=== PATIENT | female | born 1980 ===

== ENCOUNTER 2016-09-03 15:24 | Observation (INO) ==
--- NOTE | 2016-09-03 17:45 | Emergency Department Note ---
Disposition Clinical Impression: Ectopic Qualifiers: Location of ectopic : tubal Intrauterine status: without intrauterine Qualified Code(s): O00.10 - Tubal without intrauterine Disposition: Admitted As Inpatient Condition: Serious Time of Disposition: 20:07 Abdominal Pain HPI - General Chief Complaint: ED Abdominal Pain Stated Complaint: ABD pain Time Seen by Provider: 09/03/16 17:28 Source: patient Mode of arrival: ambulatory Limitations: language barrier (Limited Salvadorean ability.) Nursing Notes Reviewed: Yes Vital Signs Reviewed: Yes - History of Present Illness HPI Narrative: 36-year-old female with 1 day of suprapubic pain and nausea without vomiting. This is associated with some difficulty with urination. She denies any fever, vomiting, back pain, abnormal vaginal discharge, but does note that she had missed a period prior to starting her period 3 days ago. She admits to appendectomy about 10 years ago. She denies any other surgeries. She denies any rashes or edema. She denies any painful intercourse or concern for STD. Pain Scale: 10 - Related Data Home Medications Medication Instructions Recorded Confirmed Norgestimate-Ethinyl Estradiol 1 each PO DAILY 09/03/16 09/03/16 [Sprintec 28 Day Tablet] Allergies Allergy/AdvReac Type Severity Reaction Status Date / Time No Known Allergies Allergy Verified 09/03/16 15:46 All systems ED: reviewed and negative except as stated. Abdominal Pain PMH - Past Medical History Medical history: Reports: no medical history Psychiatric history: Reports: no psych history - Social History Smoking status: Never smoker Alcohol use: Reports: none Drug use: Reports: none Physical Exam - Head Head exam: atraumatic, normocephalic, normal inspection - Eye Eye exam: Present: normal appearance, PERRL, EOMI - ENT ENT exam: normal exam, normal oropharynx, mucous membranes moist - Neck Neck exam: Present: normal inspection, full ROM, trachea midline - Chest Chest inspection: Present: normal inspection, symmetric chest wall rise - Respiratory Respiratory exam: Clear to auscultation bilaterally without wheezes rales or rhonchi Cardiovascular Cardiovascular exam: Present: regular rate, normal rhythm, normal heart sounds - Abdominal Exam Abdomen is soft with well localized suprapubic tenderness. There is no rigidity or rebound. There is voluntary guarding. - Extremities Exam Extremities exam: Present: normal inspection, full ROM - Back Exam There is normal inspection and full range of motion. No spinal or CVA tenderness bilaterally. - Neurological Exam Neurological exam: Present: alert, oriented X3, CN II-XII intact - Psychiatric Psychiatric exam: Present: normal affect, normal mood - Skin Skin exam: Present: warm, dry, intact, normal color - General Limitations: no limitations General appearance: alert, anxious Course - Reevaluation(s) Reevaluation #1: Bedside ultrasound concerning for fluid with positive test. Dr. Sullivan paged Time: 18:15 Reevaluation #2: Dr. Sullivan aware of patient. He will come to see the patient in the emergency department now. Time: 18:20 Reevaluation #3: Patient seen by Dr. Sullivan in the emergency department. He agrees that the patient has free fluid in the abdomen and a positive test concerning for possible ruptured ectopic. Right now, patient is hemodynamically stable, and given the language barrier he would prefer to wait for interpretive services which reportedly are coming in the next few minutes. If the patient becomes hemodynamically unstable, he will take her immediately to the operating room. Time: 18:56 Additional Reevaluation(s): Ultrasound concerning for ruptured ectopic . Dr. Baez has also reviewed the ultrasound. He is coming to the emergency department to consent the patient for the OR at this time. Vital Signs Temperature 97.7 F 09/03/16 15:38 Pulse Rate 84 09/03/16 15:38 Respiratory Rate 18 09/03/16 15:38 Blood Pressure 98/69 09/03/16 15:38 O2 Sat by Pulse Oximetry 100 09/03/16 15:38 Temperature 97.8 F 09/03/16 22:56 Pulse Rate 108 09/03/16 22:56 Respiratory Rate 16 09/03/16 22:56 Blood Pressure 95/56 09/03/16 22:56 O2 Sat by Pulse Oximetry 95 09/03/16 22:56 Oxygen Delivery Oxygen Delivery Room Air Abdominal Pain - Lab Data Result diagrams: 09/03/16 18:19 09/03/16 18:19 Lab Results 09/03/16 09/03/16 09/03/16 Range/Units 17:49 17:49 18:14 WBC (4.3-11.1) K/mcL RBC (3.82-4.97) M/mcL Hgb (11.5-15.4) g/dL Hct (35.3-44.9) % MCV (83.0-100.0) fL MCH (28.0-33.3) pg MCHC (31.6-35.5) g/dL RDW (11.5-14.5) % Plt Count (140-400) K/mcL MPV (9.4-12.4) fL Immature Gran % (0-4) % Seg Neutrophils % % Lymphocytes % % Monocytes % % Eosinophils % % Basophils % % Neutrophils # (1.6-8.9) K/mcL Lymphocytes # (0.6-4.6) K/mcL Monocytes # (0.0-1.3) K/mcL Eosinophils # (0.0-0.6) K/mcL Basophils # (0.0-0.2) K/mcL Sodium (136-145) mEq/L Potassium (3.5-4.5) mEq/L Chloride (98-109) mEq/L Carbon Dioxide (19-29) mEq/L BUN (7-20) mg/dL Creatinine (0.57-1.11) mg/dL Est GFR ( Amer) (> 60) Est GFR (Non-Af Amer) (> 60) BUN/Creatinine Ratio (6-26) Glucose (70-99) mg/dL Calculated Osmolality (280-300) Calcium (8.6-10.8) mg/dL Beta HCG, Quant 1920 H (0-4) mIU/ml Urine Color Yellow (Yellow) Urine Clarity Cloudy A (Clear) Urine pH 5.5 (5.0-8.0) pH Units Ur Specific [place] 1.025 (1.010-1.025) Urine Protein 30 H (Neg-Trace) mg/dL Urine Glucose (UA) Normal (Normal) mg/dL Urine Ketones 40 H (Negative) mg/dL Urine Blood Large H (Negative) Urine Nitrite Negative (Negative) Urine Bilirubin Negative (Negative) Urine Urobilinogen Normal (Normal) mg/dL Ur Leukocyte Esterase Negative (Negative) Urine Microscopic RBC TNTC H (0-3) per hpf Urine Microscopic WBC 3-5 H (0-3) per hpf Ur Squamous Epith Cells Many H (None-Few) per lpf Urine Bacteria None Seen (None-Few) per hpf Hyaline Casts None Seen (None-Few) per lpf Ur Culture Indicated? NO (NO) Urine Test Positive A (Negative) Blood Type Antibody Screen 09/03/16 09/03/16 09/03/16 Range/Units 18:19 18:19 18:46 WBC 16.4 H (4.3-11.1) K/mcL RBC 4.26 (3.82-4.97) M/mcL Hgb 11.2 L (11.5-15.4) g/dL Hct 34.6 L (35.3-44.9) % MCV 81.2 L (83.0-100.0) fL MCH 26.3 L (28.0-33.3) pg MCHC 32.4 (31.6-35.5) g/dL RDW 14.5 (11.5-14.5) % Plt Count 435 H (140-400) K/mcL MPV 9.1 L (9.4-12.4) fL Immature Gran % 0.6 (0-4) % Seg Neutrophils % 85.3 % Lymphocytes % 11.6 % Monocytes % 2.4 % Eosinophils % 0.0 % Basophils % 0.1 % Neutrophils # 14.0 H (1.6-8.9) K/mcL Lymphocytes # 1.9 (0.6-4.6) K/mcL Monocytes # 0.4 (0.0-1.3) K/mcL Eosinophils # 0.0 (0.0-0.6) K/mcL Basophils # 0.0 (0.0-0.2) K/mcL Sodium 134 L (136-145) mEq/L Potassium 4.3 (3.5-4.5) mEq/L Chloride 106 (98-109) mEq/L Carbon Dioxide 17 L (19-29) mEq/L BUN 8 (7-20) mg/dL Creatinine 0.61 (0.57-1.11) mg/dL Est GFR ( Amer) > 60 (> 60) Est GFR (Non-Af Amer) > 60 (> 60) BUN/Creatinine Ratio 13 (6-26) Glucose 95 (70-99) mg/dL Calculated Osmolality 276 L (280-300) Calcium 9.2 (8.6-10.8) mg/dL Beta HCG, Quant (0-4) mIU/ml Urine Color (Yellow) Urine Clarity (Clear) Urine pH (5.0-8.0) pH Units Ur Specific [place] (1.010-1.025) Urine Protein (Neg-Trace) mg/dL Urine Glucose (UA) (Normal) mg/dL Urine Ketones (Negative) mg/dL Urine Blood (Negative) Urine Nitrite (Negative) Urine Bilirubin (Negative) Urine Urobilinogen (Normal) mg/dL Ur Leukocyte Esterase (Negative) Urine Microscopic RBC (0-3) per hpf Urine Microscopic WBC (0-3) per hpf Ur Squamous Epith Cells (None-Few) per lpf Urine Bacteria (None-Few) per hpf Hyaline Casts (None-Few) per lpf Ur Culture Indicated? (NO) Urine Test (Negative) Blood Type O POSITIVE Antibody Screen NEGATIVE Critical Care Time Critical Care Time: Yes Total Critical Care Time: 35 Attestation: Critical care performed: Time is exclusive of separately billable procedures. Time includes: direct patient care, patient reassessment, coordination of patient care, interpretation of data (laboratory data, radiology data, and respiratory data), review of patient's medical records, medical consultation and documentation of patient care. Procedures included in critical care time: Procedures excluded from critical care time: . Attestation Statement - Attestation Attestation: I examined this patient and my medical decision-making was reviewed with the REPORT DEVELOPER/PA/Advanced Practice Nurse/Resident Physician. I agree with the documented findings, disposition and treatment plan as described except to the extent set forth below. Patient emergency department with abdominal pain. Patient does not speak very good Salvadorean. She has a brother who speaks Salvadorean she was interpreting on the phone while were awaiting tabulating machine mechanic in the department. Complaining of vaginal bleeding. On examination she has lower abdominal tenderness. Plan. The patient a positive test. We did a bedside oximeters free fluid. She was discussed with LACE ROLLER OPERATOR, to call ultrasound for a stat transvaginal ultrasound as well as concern for an ectopic . LACE ROLLER OPERATOR at bedside at this time. Patient likely to go to the OR. Patient hemolytically stable. Type and screen pending. Hemoglobin is 11 at this time. Patient with no active bleeding on ultrasound but what appears to be an ectopic . Patient admitted. Patient going to OR at this time.
[2016-09-03 17:54] LABS: Bilirubin,Urine Negative (Negative); Blood,Urine Large (Negative); Clarity,Urine Cloudy (Clear); Color,Urine Yellow (Yellow); Glucose,Urine (UA) Normal (Normal); Ketones,Urine 40 mg/dL (Negative); Leukocyte Esterase,Urine Negative (Negative); Nitrite,Urine Negative (Negative); PH,Urine 5.5 pH Units (5.0-8.0); Protein,Urine 30 mg/dL (Neg-Trace); Specific Gravity,Urine 1.025 (1.010-1.025); Urobilinogen,Urine Normal (Normal)
[2016-09-03] MEDS ORDERED: Ondansetron ODT 4 MG TAB.RAPDIS SL ONE (17:56)
[2016-09-03] MEDS ORDERED: *HR* HYDROcodone/Acet 5/325 mg TABLET PO ONE ×2 (17:56→22:46)
[2016-09-03 17:57] LABS: Bacteria,Urine None Seen per hpf (None-Few); Hyaline Casts,Urine None Seen per lpf (None-Few); RBC,Urine TNTC per hpf (0-3); Squamous Epithelial Cell,Urine Many per lpf (None-Few)
[2016-09-03] MEDS ORDERED: *HR* Morphine 2 MG/ML SYRINGE IVP ONE (18:22)
[2016-09-03] MEDS ORDERED: Ondansetron 4 MG/2 ML VIAL IV STA (18:25)
[2016-09-03 18:33] LABS: Basophils % 0.1 %; Hematocrit 34.6 % (35.3-44.9); Hemoglobin 11.2 g/dL (11.5-15.4); Immature Granulocytes % 0.6 % (0-4); Lymphocytes # 1.9 K/mcL (0.6-4.6); Lymphocytes % 11.6 %; Mean Corpuscular HGB Conc 32.4 g/dL (31.6-35.5); Mean Corpuscular Hemoglobin 26.3 pg (28.0-33.3); Mean Corpuscular Volume 81.2 fL (83.0-100.0); Mean Platelet Volume 9.1 fL (9.4-12.4); Monocytes # 0.4 K/mcL (0.0-1.3); Monocytes % 2.4 %; Platelet Count 435 K/mcL (140-400); Red Blood Count 4.26 M/mcL (3.82-4.97); Red Cell Distribution Width 14.5 % (11.5-14.5); Segmented Neutrophils % 85.3 %
[2016-09-03 18:46] LABS: BUN/Creatinine Ratio 13 (6-26); Blood Urea Nitrogen 8 mg/dL (7-20); Calcium 9.2 mg/dL (8.6-10.8); Carbon Dioxide 17 mEq/L (19-29); Chloride 106 mEq/L (98-109); Glucose 95 mg/dL (70-99); Osmolality,Calculated 276 (280-300); Potassium 4.3 mEq/L (3.5-4.5); Sodium 134 mEq/L (136-145); eGFR For African Americans > 60 (> 60); eGFR For Non-African Americans > 60 (> 60)
[2016-09-03] MEDS ORDERED: 0.9 % Sodium Chloride 1,000 ML IV ONE (18:50)
--- NOTE | 2016-09-03 20:17 | Anesthesia Evaluation PreOp ---
Date of Encounter: 09/03/16 Time of Encounter: 20:15 - Past History Planned Operation: R-Salpingectomy re: ectopic Cardiac History: Denies any Significant Hx Pulmonary History: Denies Any Significant HX PANEL MACHINE OPERATOR History: Denies Any Significant HX Other Medical History: Denies Any Significant HX Anesthesia History: No Prior Anesthetic Complications, Past Anesthesia ([place] 1996) Alcohol Use: none Drug use: none Medications and Allergies Norgestimate-Ethinyl Estradiol [Sprintec 28 Day Tablet] 1 each PO DAILY [History] Allergies No Known Allergies Allergy (Verified 09/03/16 15:46) - Meds/Allergy Pre-op Review Medications Reviewed: Yes Allergies Reviewed: Yes Beta Blockers on Current Med List: No Anesthesia Results - Labs 09/03/16 18:19 09/03/16 18:19 Laboratory Tests 09/03/16 09/03/16 09/03/16 17:49 18:14 18:19 Est GFR (Non-Af Amer) > 60 Beta HCG, Quant 1920 H Urine Test Positive A Anesthesia Exam Vital Signs Temp Pulse Resp BP Pulse Ox 09/03/16 19:01 77 14 101/69 99 09/03/16 18:35 86 16 124/71 98 09/03/16 15:38 97.7 F 84 18 98/69 100 09/03/16 23:59 Weight 72.575 kg Height: 5'5" Weight: 160# BMI = 27 NPO (# of Hours): Coffee 0800 - HEENT Pupil (Motor): Pupils equal, EOMI Mallampati: II Teeth: Normal Oral Opening: Greater than 3 - PANEL MACHINE OPERATOR LOC: Oriented PANEL MACHINE OPERATOR Motor: Normal RUE, Normal LUE, Normal RLE, Normal LLE, Normal Face PANEL MACHINE OPERATOR Sensory: Normal: RUE, LUE, RLE, LLE, Face - Cardiac Rhythm: Regular Murmur: None - Pulmonary Breath Sounds: bilateral Clear Respiratory Effort: Symmetrical Anesthesia Assess/Plan ASA Score: 2 Modified Blaire Scale for Level of Consciousness: Cooperative, oriented, and tranquil Anesthetic Plan: General Monitoring Plan: Standard Monitors Recovery Plan: PACU Anes Supervising Prov Stmt: Pt seen/evaluated, R&B discussed w/assistance of ground mixer, questions answered and consent obtained. Osmani Traylor MD
[2016-09-03] MEDS ORDERED: *HR* Propofol 200 MG/20 ML VIAL IVP ONE (20:28)
[2016-09-03] MEDS ORDERED: *HR* Rocuronium Bromide 50 MG/5 ML VIAL ONE (20:28)
[2016-09-03] MEDS ORDERED: *HR* Midazolam HCl 2 MG/2 ML VIAL ONE (20:28)
[2016-09-03] MEDS ORDERED: *HR* FentaNYL (PF) 100 MCG/2 ML VIAL ONE (20:28)
[2016-09-03] MEDS ORDERED: Lidocaine -MPF 2% 2 ML VIAL ONE ×2 (20:28)
[2016-09-03] MEDS ORDERED: Lidocaine -MPF 4% 5 ML AMPUL ONE (20:34)
[2016-09-03] MEDS ORDERED: Acetaminophen IV 1,000 MG/100 ML INFUS..BTL ONE (20:34)
[2016-09-03] MEDS ORDERED: Metoclopramide 10 MG/2 ML VIAL ONE (20:34)
[2016-09-03] MEDS ORDERED: Famotidine 20 MG/2 ML VIAL ONE (20:34)
[2016-09-03] MEDS ORDERED: Scopolamine Patch 1.5 MG PATCH.TD72 ONE (20:41)
[2016-09-03] MEDS ORDERED: Bupivacaine-MPF 0.25% 10 ML VIAL ONE (20:41)
--- NOTE | 2016-09-03 20:52 | OB/GYN History & Physical ---
Date of Encounter: 09/03/16 Time of Encounter: 20:49 Assessment and Plan (1) Ectopic Current visit: Yes Status: Acute Pt with ruptured ectopic visuallized medial to ovary on right. She has free fluid. D/w pt options and given above findings will proceed to OR for l/s rt salpingectomy. Pt aware and questions answered. Coffee Blender was present and utilized for H&P and consent. She is RH + Qualifiers: Location of ectopic : tubal Intrauterine status: without intrauterine Qualified Code(s): O00.10 - Tubal without intrauterine History of Present Illness Chief complaint: pelvic pain and bleeding HPI: Ms. Ellsworth is a 36 year old female female presents with 4 day h/o light vaginal bleeding that has now become heavy and she is having severe lower abdominal pain. She was in ER on 08/14 and had neg preg test. Last prior period was in June. She is diagnosed by u/s with right sided ectopic and large amt of free fluid. She has no h/o STD's or prior tubal surgery. Past Med Surg Social Fam HX - Past Medical History Source: patient Medical history: no medical history Psychiatric history: no psych history - Past Surgical History Surgical History: other (appendix) - Social History Smoking Status: Never smoker Smokeless Tobacco Status: No Alcohol use: none Drug use: none Obstetrical History - Pregnancies : 3 Para: 2 Medications and Allergies Norgestimate-Ethinyl Estradiol [Sprintec 28 Day Tablet] 1 each PO DAILY [History] Allergies No Known Allergies Allergy (Verified 09/03/16 15:46) Exam - Vital Signs Vital signs: Initial Vital Signs Temp Pulse Resp BP Pulse Ox 97.7 F 84 18 98/69 100 09/03/16 15:38 09/03/16 15:38 09/03/16 15:38 09/03/16 15:38 09/03/16 15:38 - Constitutional Constitutional: moderate distress - HEENT HEENT: EOMI, PERRL - Neck Neck exam: full ROM - Lungs Respiratory exam: CTAB - Cardiovascular Cardiovascular exam: RRR - Abdomen Abdomen detail: right lower quadrant: tenderness, left lower quadrant: tenderness - Extremities Extremities exam: full ROM Deep Tendon Reflex Grade: 2+ Normal - Uterus Uterus exam: Present: tender - Adnexa Adnexa: right: tenderness Results Result Diagrams: 09/03/16 18:19 09/03/16 18:19 Abnormal lab results WBC 16.4 K/mcL (4.3-11.1) H 09/03/16 18:19 Hgb 11.2 g/dL (11.5-15.4) L 09/03/16 18:19 Hct 34.6 % (35.3-44.9) L 09/03/16 18:19 MCV 81.2 fL (83.0-100.0) L 09/03/16 18:19 MCH 26.3 pg (28.0-33.3) L 09/03/16 18:19 Plt Count 435 K/mcL (140-400) H 09/03/16 18:19 MPV 9.1 fL (9.4-12.4) L 09/03/16 18:19 Neutrophils # 14.0 K/mcL (1.6-8.9) H 09/03/16 18:19 Sodium 134 mEq/L (136-145) L 09/03/16 18:19 Carbon Dioxide 17 mEq/L (19-29) L 09/03/16 18:19 Calculated Osmolality 276 (280-300) L 09/03/16 18:19 Beta HCG, Quant 1920 mIU/ml (0-4) H 09/03/16 18:14 Urine Clarity Cloudy (Clear) A 09/03/16 17:49 Urine Protein 30 mg/dL (Neg-Trace) H 09/03/16 17:49 Urine Ketones 40 mg/dL (Negative) H 09/03/16 17:49 Urine Blood Large (Negative) H 09/03/16 17:49 Urine Microscopic RBC TNTC per hpf (0-3) H 09/03/16 17:49 Urine Microscopic WBC 3-5 per hpf (0-3) H 09/03/16 17:49 Ur Squamous Epith Cells Many per lpf (None-Few) H 09/03/16 17:49 Urine Test Positive (Negative) A 09/03/16 17:49 All other labs normal.
[2016-09-03] MEDS ORDERED: Dexamethasone 4 MG/ML VIAL ONE (21:57)
[2016-09-03] MEDS ORDERED: Ondansetron 4 MG/2 ML VIAL ONE (21:57)
[2016-09-03] MEDS ORDERED: Neostigmine Methylsulfate 3 MG/3 ML SYRINGE ONE (22:07)
[2016-09-03] MEDS ORDERED: *HR* HYDROmorphone (PF) 1 MG/ML SYRINGE ONE (22:27)
[2016-09-03] MEDS: *HR* HYDROmorphone (PF) 1 MG/ML SYRINGE IVP PRN ×2 (22:28→22:58)
[2016-09-03] MEDS ORDERED: Ketorolac 30 MG/ML VIAL IVP ONE (22:33)
[2016-09-03] MEDS ORDERED: *HR* Promethazine 25 MG/ML VIAL IVP PRN (22:36)
[2016-09-03] MEDS ORDERED: Ibuprofen 600 MG TABLET PO PRN (22:47)
--- NOTE | 2016-09-03 22:53 | OB/GYN Procedure Note ---
Laparoscopy Procedure - Diagnosis Date of procedure: 09/03/16 Pre-op diagnosis: ectopic Post-op diagnosis: same - Procedure Laparoscopy procedure: operative laparoscopy, other (Right salpingectomy) Surgeon: Yomi Sullivan Anesthesia Type: General Estimated blood loss (cc): 5 Complications: none Specimens: right fallopian tube, other (Products of conception) Findings: Partially ruptured right ampullary ectopic with proximate 400-500 mL of blood in pelvis otherwise normal pelvis Disposition: PACU Narrative: Patient is a 36-year-old 3 para 2 female who presented to emergency room with right lower quadrant pain and heavy vaginal bleeding. She was found to have positive test and ultrasound suggestive of right sided ectopic with free fluid in pelvis. Discussed with patient options and desired to proceed with operative management. District Gauger is present procedure and questions were answered and consent was obtained. Description procedure: Patient was taken on perineum or general anesthesia was administered. She was prepped and draped in usual sterile fashion bladder was drained of clear urine. Cervix is visualized and grasped with single-tooth tenaculum. [place] uterine manipulator was placed in the cervix. 5 mm trochar was placed just below the umbilicus. Blood was noted in the pelvis. Filling the pelvis and the posterior cul-de-sac and upper on the right adnexa. Patient was placed in Trendelenburg position and a 12 mm trochars placed just above the symphysis pubis. Another 5 mm trochars placed in the right lower quadrant also dilated and plantar portion of right fallopian tube was noted with partially aborted ectopic . Right fallopian tube was grasped at its distal end and LigaSure was taken across the medial portion of the right fallopian tube had been transected along the mesosalpinx with LigaSure. The right fallopian tube and ectopic were removed through the 12 mm trocar. Through irrigation and suction was performed and pelvis this was completely cleared of all fresh blood and clot. Uterus looked normal as did the left fallopian tube. Both ovaries were normal. At this point pneumoperitoneum was released 12 mm trocar was removed and the fascia was reapproximated with 0 Vicryl rested trochars removed and skin edges reapproximated with 4-0 Vicryl. This point all sponge and instruments counts are correct patient was taken recovery in good condition.
[2016-09-03] MEDS ORDERED: Ringers Solution, Lactated 1,000 ML IVC SCH (23:00)
--- NOTE | 2016-09-03 23:02 | Anesthesia Evaluation Post Op ---
Date of Encounter: 09/03/16 Time of Encounter: 23:01 - Vital Signs Vital Signs: Vital Signs/O2 Sat/Glucose, Most Current Temp Pulse Resp BP Pulse Ox 09/03/16 22:46 104 16 108/69 97 09/03/16 22:36 106 16 105/66 99 09/03/16 22:26 120 16 110/60 100 09/03/16 22:16 97.9 F 125 16 104/87 100 09/03/16 20:33 16 115/67 09/03/16 20:21 105 18 115/67 100 - Lungs Lungs: Clear Ascult./Percussion - Airway Airway: Non-obstructed - Cardiovascular Regular Rate, Baseline Rhythm - Mental Status Mental Status: Alert & Oriented, Answers Appropriately - Pain Pain Scale: 3 Pain Scale used: Numeric (1 - 10) - Nausea Vomiting Nausea Vomiting: Not Present - Hydration Hydration: Ice chips, Has not voided - Discharge PostOp Status: Transfer Patient to floor Anes Supervising Prov Stmt: Pt seen/evaluated, VSS and pt has met criteria for discharge to floor. - MD Layton
[2016-09-04] MEDS ORDERED: *HR* HYDROcodone/Acet 5/325 mg TABLET PO ONE (05:00)
--- NOTE | 2016-09-04 06:51 | Discharge Summary ---
Outpatient Proc Discharge Plan - Plan Prescriptions: Ibuprofen [Motrin] 600 mg PO Q6HR PRN #40 tablet PRN Reason: Pain HYDROcodone/Acet 5/325 mg [[place] 5-325 mg] 1 tab PO Q4H PRN #20 tab PRN Reason: post op pain Home Medications: Norgestimate-Ethinyl Estradiol [Sprintec 28 Day Tablet] 1 each PO DAILY [History] HYDROcodone/Acet 5/325 mg [[place] 5-325 mg] 1 tab PO Q4H PRN #20 tab 09/04/16 [Rx ] Ibuprofen [Motrin] 600 mg PO Q6HR PRN #40 tablet 09/04/16 [Rx]
[2016-09-04 08:45] VITALS: BP 91/49
--- NOTE | 2016-09-04 08:59 | OB/GYN Progress Note ---
Date of Encounter: 09/04/16 Time of Encounter: 08:58 Subjective - Subjective Interval history: Discussed POC with patient and patient's . Patient to follow up with Dr. Sullivan in 2 weeks. Patient instructed on wound care. Patient and both deny any questions or concerns. Verbal order given per Dr. Sullivan for discharge home. Patient reports: appetite normal, voiding normally, pain well controlled, ambulating normally Objective - Vital Signs Latest vital signs: Vital Signs Temp Pulse Resp BP Pulse Ox 09/04/16 07:55 98.1 F 94 16 91/49 97 09/04/16 06:40 98.5 F 96 12 101/64 97 09/04/16 04:51 97.5 F L 89 14 106/71 99 09/04/16 01:39 98.1 F 102 14 98/62 97 09/04/16 00:30 97.5 F L 99 12 98/64 96 09/04/16 00:00 98.0 F 105 14 106/71 97 09/03/16 23:30 97.9 F 106 14 96/63 99 09/03/16 23:13 98.7 F 104 16 95/55 96 09/03/16 23:06 102 16 94/54 96 09/03/16 22:56 97.8 F 108 16 95/56 95 09/03/16 22:46 104 16 108/69 97 09/03/16 22:36 106 16 105/66 99 09/03/16 22:26 120 16 110/60 100 09/03/16 22:16 97.9 F 125 16 104/87 100 09/03/16 20:33 16 115/67 09/03/16 20:21 105 18 115/67 100 Intake and Output 09/03/16 09/04/16 09/04/16 23:59 07:59 15:59 Intake Total 1000 / 1000 Output Total 220 / 220 Balance 995 / 995 -154 / -154 Intake: IV Fluids 1000 / 1000 Lactated Ringers 1,000 ML 1000 / 1000 @ 125 mls/hr IVC .Q8H [facility] Rx#:[id number] Oral Output: Urine 220 / 220 Estimated Blood Loss Other: Stool Characteristics Normal for Patient Normal for Patient # Voids 1 Weight 62.3 kg Patient Weight 09/04/16 23:59 Weight 62.3 kg - I&O's I&O's: Intake & Output 09/01/16 09/02/16 09/03/16 09/04/16 23:59 23:59 23:59 23:59 Intake Total 1000 / 1000 66 / 66 Output Total 220 / 220 Balance 995 / 995 -154 / -154 Weight 62.3 kg - Labs Labs: Abnormal lab results WBC 16.4 K/mcL (4.3-11.1) H 09/03/16 18:19 Hgb 11.2 g/dL (11.5-15.4) L 09/03/16 18:19 Hct 34.6 % (35.3-44.9) L 09/03/16 18:19 MCV 81.2 fL (83.0-100.0) L 09/03/16 18:19 MCH 26.3 pg (28.0-33.3) L 09/03/16 18:19 Plt Count 435 K/mcL (140-400) H 09/03/16 18:19 MPV 9.1 fL (9.4-12.4) L 09/03/16 18:19 Neutrophils # 14.0 K/mcL (1.6-8.9) H 09/03/16 18:19 Sodium 134 mEq/L (136-145) L 09/03/16 18:19 Carbon Dioxide 17 mEq/L (19-29) L 09/03/16 18:19 Calculated Osmolality 276 (280-300) L 09/03/16 18:19 Beta HCG, Quant 1920 mIU/ml (0-4) H 09/03/16 18:14 Urine Clarity Cloudy (Clear) A 09/03/16 17:49 Urine Protein 30 mg/dL (Neg-Trace) H 09/03/16 17:49 Urine Ketones 40 mg/dL (Negative) H 09/03/16 17:49 Urine Blood Large (Negative) H 09/03/16 17:49 Urine Microscopic RBC TNTC per hpf (0-3) H 09/03/16 17:49 Urine Microscopic WBC 3-5 per hpf (0-3) H 09/03/16 17:49 Ur Squamous Epith Cells Many per lpf (None-Few) H 09/03/16 17:49 Urine Test Positive (Negative) A 09/03/16 17:49 Consult Discharge Plan - Plan Referrals: NO,PCP [Primary Care Provider] - Yomi Sullivan MD [Partnered Physician] - Prescriptions: Ibuprofen [Motrin] 600 mg PO Q6HR PRN #40 tablet PRN Reason: Pain HYDROcodone/Acet 5/325 mg [[place] 5-325 mg] 1 tab PO Q4H PRN #20 tab PRN Reason: post op pain
== END 2016-09-04 12:55 | disposition home or self-care (01) ==
LOC: 1NENUOBS 15:24 → EMEROO 15:24 → 1NENUOBS 20:41
PROVIDERS: ADMIT Obstetrics & Gynecology; ATTEND Obstetrics & Gynecology